=== PATIENT | male | born 1975 | race Two or more races ===

== ENCOUNTER 2017-01-23 23:15 | Emergency (ER) | payer BC, OTHER ==
[~2017-01-23] VITALS: Ht 165.1 cm; Wt 95.3 kg
[2017-01-24 00:32] VITALS: BP 133/81
== END 2017-01-24 01:30 | disposition home or self-care (01) ==
LOC: ER 23:16
DX: S01.01XA Laceration without foreign body of scalp, initial encounter (principal); W18.39XA Other fall on same level, initial encounter; Y93.89 Activity, other specified; Y92.89 Other specified places as the place of occurrence of the external cause; Y99.8 Other external cause status
CPT/HCPCS: 12002; 70450

== ENCOUNTER 2017-01-30 13:52 | Emergency (ER) | payer BC ==
[~2017-01-30] VITALS: Ht 167.6 cm; Wt 93.9 kg
[2017-01-30 13:56] VITALS: BP 136/88
== END 2017-01-30 16:32 | disposition home or self-care (01) ==
LOC: ER 13:52
DX: S01.81XD Laceration without foreign body of other part of head, subsequent encounter (principal); Z48.02 Encounter for removal of sutures

== ENCOUNTER 2021-06-05 14:40 | Emergency (ER) | payer BC ==
[~2021-06-05] VITALS: Ht 165.1 cm; Wt 88.5 kg
[2021-06-05] MEDS ORDERED: IOHEXOL 300 MG/ML 100ML BOTTLE IJ ONE (15:34)
[2021-06-05 16:04] LABS: Basophils # (auto) 0 10 ^3/uL (0-0.2); Eosinophils # (auto) 0 10 ^3/uL (0-0.8); Hemoglobin 17.3 g/dL (13.5-17.5); Lymphocytes # (auto) 2.4 10 ^3/uL (0.4-5.4); Nucleated Red Blood Cells % 0.2 %; Red Cell Distribution Width 14.1 % (11.8-14.3)
[2021-06-05 16:05] LABS: Basophils % (auto) 0.4 % (0.0-2.0); Eosinophils % (auto) 0.3 % (0.0-7.0); Hematocrit 49.9 % (41.0-53.0); Lymphocytes % (auto) 18.4 % (10.0-50.0); Mean Corpuscular Hemoglobin 28.8 pg (28.0-32.0); Mean Corpuscular Hgb Conc. 34.7 g/dL (32.0-36.0); Mean Corpuscular Volume 83.2 fL (80.0-100.0); Monocytes # (auto) 1.7 10 ^3/uL (0-1.3); Neutrophils # (auto) 8.7 10 ^3/uL (1.6-8.6); Neutrophils % (auto) 67.9 % (37.0-80.0); Red Blood Cells 5.99 10^6/uL (4.5-5.90); White Blood Cell 12.8 10^3/uL (4.4-10.8)
[2021-06-05 16:16] LABS: Albumin 3.6 g/dL (3.4-5.0); Calcium 9.1 mg/dL (8.5-10.1); Potassium 4.1 mmol/L (3.5-5.1)
[2021-06-05 16:21] LABS: BUN/Creatinine Ratio 19.7; Bilirubin, Total 0.7 mg/dL (0.2-1.0); Total Protein 8.9 g/dL (6.4-8.2)
[2021-06-05] MEDS ORDERED: LACTATED RINGER'S 1,000 ML IV ONE (17:30)
[2021-06-05 19:45] LABS: Urine Bacteria NONE SEEN /hpf (None Seen); Urine Blood 2+ /uL (Negative); Urine Specific Gravity 1.048 (1.001-1.035); Urine WBC 834 /hpf (0 - 3); Urine WBC Clumps PRESENT /hpf (None Seen)
[2021-06-05] MEDS ORDERED: CIPR-173 PO (21:41)
[2021-06-05 21:57] VITALS: BP 121/45
== END 2021-06-05 21:56 | disposition home or self-care (01) ==
LOC: ER 14:40
DX: N17.9 Acute kidney failure, unspecified (principal); N30.90 Cystitis, unspecified without hematuria; R74.01 Elevation of levels of liver transaminase levels; E11.9 Type 2 diabetes mellitus without complications; I10 Essential (primary) hypertension
CPT/HCPCS: 36415; 74177; 80053; 81001; 84484; 85025; 96360; 99285; Q9967